=== PATIENT | female | born 1950 | race Caucasian/White ===

== ENCOUNTER → 2016-09-04 | Outpatient (REF) | payer MEDICARE, OTHER ==
[2016-09-04 18:16] LABS: AMYLASE 26 U/L (25-115)
== END | disposition home or self-care (01) ==
LOC: M LAB REF 17:02
PROVIDERS: ATTEND Nurse Practitioner Family
DX: R10.13 Epigastric pain (principal)

== ENCOUNTER → 2016-10-26 | Outpatient (REF) | payer MEDICARE, OTHER ==
[2016-10-27 13:56] LABS: PERCENT SATURATION 17.8 % (13.2-37.4)
== END ==
LOC: M LAB REF 12:54
PROVIDERS: ATTEND Internal Medicine
DX: D64.9 Anemia, unspecified (principal)

== ENCOUNTER 2018-04-05 06:30 | Outpatient (CLI) | payer MEDICARE, BC, OTHER ==
[~2018-04-05 06:30] MED LIST: SODIUM CHLORIDE 0.9% INJ 10 ML SYR IV
[2018-04-05] MEDS: SODIUM CHLORIDE 0.9% INJ 10 ML SYR IV (07:15)
[2018-04-05 07:27] LABS: BASO # 0.1 10^3/uL (0.0-0.2); BASO % 0.5 % (0.0-1.0); EOS # 1.4 10^3/uL (0.0-0.50); EOS % 12.3 % (0.0-3.0); HEMATOCRIT 35.9 % (36.0-47.0); HEMOGLOBIN 11.7 g/dl (12.0-15.5); IMMATURE GRANULOCYTE % 0.5 % (0-3.0); LYMPH # 2.9 10^3/uL (1.5-4.5); LYMPH % 25.9 % (24.0-44.0); MEAN CORPUSCULAR HEMOGLOBIN 31.4 pg (27.0-33.0); MEAN CORPUSCULAR HGB CONC 32.6 g/dl (32.0-36.5); MEAN CORPUSCULAR VOLUME 96.2 fl (80.0-96.0); MONO % 8.6 % (0.0-5.0); NEUTROPHILS # 5.8 10^3/uL (1.8-7.7); NEUTROPHILS % 52.2 % (36.0-66.0); PLATELET COUNT, AUTOMATED 210 10^3/uL (150-450); RED BLOOD COUNT 3.73 10^6/uL (4.00-5.40); RED CELL DISTRIBUTION WIDTH 13.2 % (11.5-14.5); WHITE BLOOD COUNT 11.1 10^3/uL (4.0-10.0)
[2018-04-05 08:04] LABS: ERYTHROCYTE SEDIMENTATION RATE 69 mm/hr (0-30)
[2018-04-05 08:05] LABS: ALBUMIN 3.5 GM/DL (3.2-5.2); ALBUMIN/GLOBULIN RATIO 0.95 (1.00-1.93); ALKALINE PHOSPHATASE 105 U/L (45-117); ALT/SGPT 37 U/L (12-78); ANION GAP 10 MEQ/L (8-16); AST/SGOT 22 U/L (7-37); BILIRUBIN,TOTAL 0.3 MG/DL (0.2-1.0); BLOOD UREA NITROGEN 21 MG/DL (7-18); C REACTIVE PROTEIN QUANTITATIV 1.99 MG/DL (0.00-0.30); CALCIUM LEVEL 9.1 MG/DL (8.8-10.2); CARBON DIOXIDE LEVEL 30 MEQ/L (21-32); CHLORIDE LEVEL 99 MEQ/L (98-107); CREATININE FOR GFR 0.91 MG/DL (0.55-1.30); GLOMERULAR FILTRATION RATE > 60.0 (>45); GLUCOSE, FASTING 113 MG/DL (70-100); POTASSIUM SERUM 3.3 MEQ/L (3.5-5.1); SODIUM LEVEL 139 MEQ/L (136-145); TOTAL PROTEIN 7.2 GM/DL (6.4-8.2); VANCOMYCIN LEVEL TROUGH 15.8 UG/ML (10.0-20.0)
== END 2018-04-05 08:00 | disposition home or self-care (01) ==
LOC: M INFU 06:30
DX: Z22.322 Carrier or suspected carrier of Methicillin resistant Staphylococcus aureus (principal)
CPT/HCPCS: 36592

== ENCOUNTER → 2018-05-22 | Outpatient (REF) | payer MEDICARE, OTHER ==
[2018-05-23 14:12] LABS: C REACTIVE PROTEIN QUANTITATIV 1.91 MG/DL (0.00-0.30)
== END ==
LOC: M LAB REF 13:56
DX: L03.114 Cellulitis of left upper limb (principal)
CPT/HCPCS: 86140

== ENCOUNTER → 2018-05-27 | Outpatient (CLI) | payer MEDICARE, BC, OTHER | LOC: M RAD 16:55 | DX: S83.92XA Sprain of unspecified site of left knee, initial encounter (principal); M25.461 Effusion, right knee; M17.11 Unilateral primary osteoarthritis, right knee; X58.XXXA Exposure to other specified factors, initial encounter; Y92.9 Unspecified place or not applicable | CPT/HCPCS: 73700 ==

== ENCOUNTER → 2018-05-30 | Outpatient (REF) | payer MEDICARE, OTHER ==
[2018-06-01 00:08] LABS: Lyme Disease IgG/IgM Antibodie <0.91 ISR (0.00-0.90); Lyme Disease IgM Ab Quantitati <0.80 index (0.00-0.79)
== END ==
LOC: M LAB REF 12:12
DX: L03.114 Cellulitis of left upper limb (principal)
CPT/HCPCS: 86617

== ENCOUNTER 2018-09-09 07:39 | Day surgery (SDC) | payer MEDICARE, BC, OTHER ==
[~2018-09-09] VITALS: Ht 170.2 cm; Wt 124.5 kg
[~2018-09-09 07:39] MED LIST changes: +CALC600T57 PO; +FERR325T3 PO; +FERR32TA PO; +K-TA10TA2 PO; +LASI40TA9 PO; +MAGN400C2 PO; +MECL-86 PO; +NEUR300C PO; +NEUR600T PO; +NS 1,000 ML IV ONE; +PRAV10TA4 PO; +ROPI2TAB PO; -SODIUM CHLORIDE 0.9% INJ 10 ML SYR IV; +SYNT100T PO; +TOPR50TA23 PO; +TORS20TA2 PO; +TYLE650T35 PO; +ULTR50TA8 PO; +VENL75TA2 PO; +VITA200016 PO; +XARE20TA PO
[2018-09-09] MEDS ORDERED: PROPOFOL 200 MG/20 ML VIAL As Ordered ONE (09:01)
[2018-09-09] MEDS ORDERED: LIDOCAINE 2% INJ 100 MG/5 ML SDV (FOR ANES.) As Ordered ONE (09:01)
--- NOTE | 2018-09-09 10:23 | ROOR ---
Patient Name: Arlen Modi Procedure Date: 09/09/2018 10:01 AM Date of : 1950 Age: 68 Room: [facility] Gender: Female Note Status: Finalized Procedure: Total Colonoscopy to Cecum Indications: High risk colon cancer surveillance: Personal history of colonic polyps, Last colonoscopy: 2014 Providers: Ramo Wise MD Referring MD: Christie Valdez DO Requesting Provider: Medicines: Monitored Anesthesia Care Complications: No immediate complications. Procedure: Pre-Anesthesia Assessment: - The heart rate, respiratory rate, oxygen saturations, blood pressure, adequacy of pulmonary ventilation, and response to care were monitored throughout the procedure. The Colonoscope was introduced through the anus and advanced to the cecum, identified by appendiceal orifice and ileocecal valve. The colonoscopy was performed without difficulty. The patient tolerated the procedure well. The quality of the bowel preparation was excellent. Findings: The perianal and digital rectal examinations were normal. Non-bleeding internal hemorrhoids were found during retroflexion. The hemorrhoids were small and Grade I (internal hemorrhoids that do not prolapse). Multiple small and large-mouthed diverticula were found in the recto-sigmoid colon, sigmoid colon and descending colon. The exam was otherwise without abnormality on direct and retroflexion views. Impression: - Non-bleeding internal hemorrhoids. - Diverticulosis in the recto-sigmoid colon, in the sigmoid colon and in the descending colon. - The examination was otherwise normal on direct and retroflexion views. - No specimens collected. - The exam was otherwise normal to the cecum. Recommendation: - Patient has a contact number available for emergencies. The signs and symptoms of potential delayed complications were discussed with the patient. Return to normal activities tomorrow. Written discharge instructions were provided to the patient. - High fiber diet. - Discharge patient to home. - Continue present medications. - Repeat colonoscopy in 5 years for surveillance. - Return to referring physician. - The findings and recommendations were discussed with the patient's family. Ramo Wise MD Ramo Wise MD 09/09/2018 10:23:12 AM This report has been signed electronically. Number of Addenda: 0 Note Initiated On: 09/09/2018 10:01 AM Estimated Blood Loss: Estimated blood loss: none.
[2018-09-09 10:45] VITALS: BP 158/74
== END 2018-09-09 10:53 | disposition home or self-care (01) ==
LOC: M OPP 07:39
PROVIDERS: ATTEND Internal Medicine Gastroenterology
DX: Z86.010 Personal history of colon polyps (principal); K64.0 First degree hemorrhoids; K57.30 Diverticulosis of large intestine without perforation or abscess without bleeding; Z88.6 Allergy status to analgesic agent; Z88.8 Allergy status to other drugs, medicaments and biological substances; Z79.899 Other long term (current) drug therapy

== ENCOUNTER 2019-06-19 11:14 | Outpatient (RCR) | payer MEDICARE, BC, OTHER ==
[~2019-06-19 11:14] MED LIST changes: -NS 1,000 ML IV ONE; +TOPR50TA PO; -TOPR50TA23 PO
== END 2019-06-28 ==
LOC: M PT 11:14
PROVIDERS: ATTEND Internal Medicine
DX: I89.0 Lymphedema, not elsewhere classified (principal)

== ENCOUNTER 2019-07-24 09:21 | Outpatient (RCR) | payer MEDICARE, BC, OTHER | END 2019-07-29 | LOC: M PT 09:21 | PROVIDERS: ATTEND Internal Medicine | DX: I89.0 Lymphedema, not elsewhere classified (principal) ==

== ENCOUNTER → 2020-03-29 | Outpatient (REF) | payer MEDICARE, OTHER ==
[~2020-03-29] MED LIST changes: +ACET650T61 PO; -ROPI2TAB PO; +ROPI2TAB3 PO; -TYLE650T35 PO
[2020-03-29 13:26] LABS: PERCENT SATURATION 38.3 % (13.2-45.0)
== END ==
LOC: M LAB REF 11:53
PROVIDERS: ATTEND Internal Medicine
DX: D50.9 Iron deficiency anemia, unspecified (principal)

== ENCOUNTER 2020-06-22 16:05 | Emergency (ER) | payer MEDICARE, OTHER ==
[~2020-06-22] VITALS: Ht 167.6 cm; Wt 119.9 kg
[2020-06-22] MEDS ORDERED: TRANEXAMIC ACID 100 MG/ML 10ML VIAL ONE (16:30)
[2020-06-22] MEDS ORDERED: BACIOIN23 OP (17:48)
[2020-06-22] MEDS ORDERED: BACIOIN7 TOP (17:50)
[2020-06-22 17:59] VITALS: BP 190/88
== END 2020-06-22 18:00 | disposition home or self-care (01) ==
LOC: M ED 16:05
DX: R04.0 Epistaxis (principal); E78.00 Pure hypercholesterolemia, unspecified; I10 Essential (primary) hypertension; E03.9 Hypothyroidism, unspecified; G25.81 Restless legs syndrome; F32.9 Major depressive disorder, single episode, unspecified; Z88.5 Allergy status to narcotic agent; Z88.6 Allergy status to analgesic agent; Z96.612 Presence of left artificial shoulder joint; Z79.01 Long term (current) use of anticoagulants; Z79.899 Other long term (current) drug therapy

== ENCOUNTER → 2021-10-14 | Outpatient (REF) | payer MEDICARE, BC, OTHER ==
[~2021-10-14] MED LIST changes: +BACIOIN23 OP; +BACIOIN7 TOP
[2021-10-14 13:38] LABS: PERCENT SATURATION 30.5 % (13.2-45.0)
== END ==
LOC: M LAB REF 12:41
PROVIDERS: ATTEND Internal Medicine
DX: D50.9 Iron deficiency anemia, unspecified (principal)

== ENCOUNTER → 2021-12-07 | Outpatient (REF) | payer MEDICARE, BC, OTHER | LOC: M LAB REF 11:37 | PROVIDERS: ATTEND Internal Medicine | DX: R19.7 Diarrhea, unspecified (principal) ==

== ENCOUNTER → 2022-11-29 | Outpatient (REF) | payer MEDICARE, BC, OTHER ==
[2022-11-29 13:10] LABS: INR 1.04; PARTIAL THROMBOPLASTIN TIME 28.1 SECONDS (24.8-34.2); PROTHROMBIN TIME 13.8 SECONDS (12.5-14.5)
== END ==
LOC: M LAB REF 12:15
PROVIDERS: ATTEND Internal Medicine
DX: Z01.818 Encounter for other preprocedural examination (principal); Z79.01 Long term (current) use of anticoagulants

== ENCOUNTER → 2023-12-11 | Outpatient (REF) | payer MEDICARE, OTHER ==
[~2023-12-11] MED LIST changes: -K-TA10TA2 PO; +POTA-165 PO; -ROPI2TAB3 PO; +ROPI2TAB46 PO
[2023-12-11 14:00] LABS: PERCENT SATURATION 21.8 % (13.2-45.0)
[2023-12-11 14:04] LABS: FERRITIN 136.2 NG/ML (7.3-270.7)
== END ==
LOC: M LAB REF 12:00
PROVIDERS: ATTEND Internal Medicine
DX: D64.9 Anemia, unspecified (principal)

== ENCOUNTER → 2024-02-04 | Outpatient (REF) | payer MEDICARE, OTHER | LOC: M LAB REF 13:08 | PROVIDERS: ATTEND Internal Medicine | DX: L03.115 Cellulitis of right lower limb (principal) ==

== ENCOUNTER 2024-02-20 13:17 | Day surgery (SDC) | payer MEDICARE, BC ==
[~2024-02-20] VITALS: Ht 170.2 cm; Wt 111.6 kg
[~2024-02-20 13:17] MED LIST changes: +EZET10TA21 PO; +GABA-1171 PO; +GABA-282 PO; +LEVO100T5 PO; +ROPI3TAB18 PO; +SPIR50TA4 PO; +VENL75CA47 PO; +XARE10TA PO
[2024-02-20] MEDS: NS 1,000 ML IV ONE (14:16)
[2024-02-20] MEDS ORDERED: propofoL 200 MG/20 ML VIAL As Ordered ONE (15:38)
[2024-02-20] MEDS ORDERED: LIDOCAINE 2% 100MG/5ML SDV (FOR ANES.) As Ordered ONE (15:38)
[2024-02-20 15:54] VITALS: TEMP 98.2
[2024-02-20 16:21] VITALS: BP 134/64; O2SAT 97
== END 2024-02-20 16:27 | disposition home or self-care (01) ==
LOC: M OPP 13:17
PROVIDERS: ATTEND Internal Medicine Gastroenterology
DX: Z12.11 Encounter for screening for malignant neoplasm of colon (principal); Z86.010 Personal history of colon polyps; D12.2 Benign neoplasm of ascending colon; K64.0 First degree hemorrhoids; K57.30 Diverticulosis of large intestine without perforation or abscess without bleeding; E03.9 Hypothyroidism, unspecified; Z79.01 Long term (current) use of anticoagulants; Z79.890 Hormone replacement therapy; Z79.891 Long term (current) use of opiate analgesic; Z79.899 Other long term (current) drug therapy; Z88.1 Allergy status to other antibiotic agents; Z88.5 Allergy status to narcotic agent; Z88.6 Allergy status to analgesic agent

== ENCOUNTER → 2024-05-23 | Outpatient (REF) | payer MEDICARE, OTHER ==
[~2024-05-23] MED LIST changes: +GABA-1172 PO; -GABA-282 PO
[2024-05-23 19:38] LABS: PERCENT SATURATION 29.5 % (13.2-45.0)
[2024-05-23 19:42] LABS: FERRITIN 169.3 NG/ML (7.3-270.7)
== END ==
LOC: M LAB REF 16:33
PROVIDERS: ATTEND Internal Medicine
DX: D50.9 Iron deficiency anemia, unspecified (principal)

== ENCOUNTER → 2024-08-12 | Outpatient (CLI) | payer MEDICARE, OTHER, BC | LOC: M WUC 14:22 | PROVIDERS: ATTEND Internal Medicine | DX: M54.2 Cervicalgia (principal) ==

== ENCOUNTER → 2024-08-25 | Outpatient (CLI) | payer MEDICARE, BC | LOC: M RAD 07:51 | PROVIDERS: ATTEND Internal Medicine | DX: E04.1 Nontoxic single thyroid nodule (principal) ==

== ENCOUNTER → 2025-02-02 | Outpatient (CLI) | payer MEDICARE, BC ==
[~2025-02-02] MED LIST changes: +PRAV10TA PO; -PRAV10TA4 PO
== END ==
LOC: M LAB 06:57
PROVIDERS: ATTEND Student in an Organized Health Care Education/Training Program
DX: Z01.82 Encounter for allergy testing (principal); Z79.01 Long term (current) use of anticoagulants